=== PATIENT | female | born 1960 | race Caucasian/White ===

== ENCOUNTER → 2016-06-17 | Day surgery (SDC) | payer OTHER ==
[~2016-06-17] MED LIST: ACETAMINOPHEN 1000 MG/100 ML VIAL IV ONE; ACETAMINOPHEN/HYDROcodone 325 MG/5 MG TAB ONE; AMLO5TAB2 PO; BALANCED SALT SOLN OPHT IRRIG 15 ML BTL ONE; LACTATED RINGER'S 1000 ML INJ 1,000 ML ONE; LEVO.1 PO; LEVO125T4 PO; LIDOCAINE 1%/EPINEPHrine 1:100,000 SOLN 50 ML VIAL ONE; LIDOCAINE 2%/EPINEPHrine PF 1:200,000 20ML SDV ONE; LISI30TA4 PO; MIDAZOLAM HCL 2 MG/2 ML VIAL ONE; NEOMYCIN/POLYMYXIN/BACITRACIN OINT 15 GM TUBE ONE; NEOMYCIN/POLYMYXIN/HYDROCORT OTIC SUSP 10 ML BTL ONE; ONDANSETRON HCL 4 MG/2 ML VIAL IV PUSH ONE; PROPOFOL 200 MG/20 ML AMP IV ONE; ceFAZolin INJ 1,000 MG VIAL ONE
--- NOTE | 2016-06-17 11:59 | TN ---
cc: SABAS RODARTE M.D. 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 PROCEDURE 1. Bilateral upper and lower blepharoplasty with bilateral lower lid canthopexy. 2. Cervicofacial rhytidectomy with plication of the SMAS and lateral platysmaplasty. 3. Micro fat injections for a grand total of 25 cc, 12.5 per side, in the nasolabial fold marionette lines and cheek areas. SURGEON Sabas Rodarte MD ANESTHESIA LMA general. ESTIMATED BLOOD LOSS Minimal COMPLICATIONS None. PROCEDURE She was properly consented, marked and positioned in the holding area. She was taken to the upper room where, after achieving a level of LMA anesthesia, the incisions including the eyelid areas were done, anesthetized with 2% lidocaine and then a total of 200 cc of tumescent fluid was injected in the mid-lower face and neck as well as the lower abdomen. After prepping and draping in the usual fashion, our attention was directed to the lower abdomen where, utilizing blunt cannulas, a total of 50 cc of micro-fat was utilized utilizing blunt cannulas. The fat was properly washed and put into a strain where the oils from the blood was removed and it was suitable for injection, a total of approximately 25. From there, to minimize the out of the body time, we injected right away with 5 cc syringes into the areas of the nasolabial fold marionette lines, upper cheek and lateral cheek. After that, attention was directed to the eyelids where the excessive skin was removed from the upper eyelids. Through a subciliary incision, we elevated the lower eyelid as a myocutaneous flap, released the orbital septum and redistributed the lower fat pads which were properly sutured in this new anatomical position away from the arcus marginalis and orbital septum utilizing 6-0 Monocryl suture. At this point a lateral canthoplasty was done utilizing 5-0 clear nylon from the inner aspect of the orbit to the lateral canthal system. With that, the excess skin was removed from the lower eyelid and closure of the wounds were done utilizing 6-0 Monocryl suture in the dermis and subcu of 6-0 Prolene. The contralateral side was approached in exactly the same manner. At this point attention was directed to the face where, through a pre and postauricular incision, the cervicofacial flap was elevated proximal to the nasolabial fold and down to the base of the neck. I proceeded to perform the SMAS plication utilizing a running 4-0 Mersilene suture and lateral platysmaplasty as well. Lipectomy was done where needed to sculpture the neck and with this ARTISS tissue glue was utilized for tissue glue to assure good adhesion. The contralateral side was approached in exactly the same manner and at this point I proceeded and performed the closure in which in the preauricular area I utilized 5-0 Monocryl suture of 5-0 fast-absorbing. In the postauricular area I utilized 3-0 Monocryl suture and surgical aury. Good viability of the tissue was noted at the end of the case. The suture lines on the eyelids were secured utilizing Steri-Strips and absorbent compression dressing was applied thereafter. She was awakened and extubated in the operating room, transferred back to the Post-Anesthesia Care Unit in stable condition. No complication appreciated and the patient tolerated the procedure fairly well. MD ANGIE Hawley/TINA /11:26 AM /11:43 AM HOWARD
== END | disposition home or self-care (01) ==
LOC: ESDC 06:19
PROVIDERS: ATTEND Plastic Surgery
DX: Z41.1 Encounter for cosmetic surgery (principal)
CPT/HCPCS: 00103; 00300; 11954; 15820; 15822; 15828; 21282; J0131; J0690; J2250; J2405; J3010; J7120

== ENCOUNTER 2016-09-07 21:34 | Emergency (ER) | payer BC ==
[~2016-09-07] VITALS: Ht 170.2 cm; Wt 65.0 kg
[2016-09-07 21:36] VITALS: BP 141/73; PULSE 84; RESP 18; TEMP 99.3; O2SAT 84
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
[2016-09-07] MEDS ORDERED: ALPRAZolam 0.5 MG TAB PO ONE (22:45)
[2016-09-07 23:36] LABS: AUTOMATED NEUTROPHIL # 3.6 TH/MM3 (1.8-7.7); BASOPHIL % 0.7 % (0.0-2.0); EOSINOPHIL # 0.1 TH/MM3 (0-0.4); EOSINOPHIL % 1.1 % (0.0-4.0); HEMATOCRIT 46.1 % (35.0-46.0); HEMO FLAGS DIFF FINAL; LYMPH % 33.4 % (9.0-44.0); LYMPHOCYTE # 2.2 TH/MM3 (1.0-4.8); MEAN CELL VOLUME 95.5 FL (80.0-100.0); MEAN CORPUSCULAR HEMOGLOBIN 33.6 PG (27.0-34.0); MEAN CORPUSCULAR HGB CONC 35.1 % (32.0-36.0); MONO % 8.7 % (0.0-8.0); NEUT % 56.1 % (16.0-70.0); PLATELET COUNT 228 TH/MM3 (150-450); RED BLOOD COUNT 4.83 MIL/MM3 (4.00-5.30); RED CELL DISTRIBUTION WIDTH 14.1 % (11.6-17.2); WHITE BLOOD COUNT 6.5 TH/MM3 (4.0-11.0)
[2016-09-07 23:37] LABS: BLOOD, URINE NEG (NEG); COMMENT (UR) CULT NOT INDICATED; CULTURE IF INDICATED CULT NOT INDICATED; GLUCOSE,URINE NEG (NEG); HYALINE CAST, URINE 3 /lpf (RARE); KETONE, URINE NEG (NEG); NITRITE,URINE NEG (NEG); SQUAMOUS EPITHELIAL CELL URINE 1 /hpf (0-5); URINE COLOR YELLOW (YELLW/STRAW)
[2016-09-07 23:42] LABS: AMPHETAMINE, URINE NEG (NEG); BARBITURATES, URINE NEG (NEG); COCAINE, URINE NEG (NEG)
[2016-09-07 23:49] LABS: ANION GAP 12 MEQ/L (5-15); AST (GOT) 32 U/L (15-37); BICARBONATE 24.4 MEQ/L (21.0-32.0); BLOOD UREA NITROGEN 9 MG/DL (7-18); CHLORIDE 99 MEQ/L (98-107); GLOMERULAR FILTRATION RATE 66 ML/MIN (>89); POTASSIUM 3.7 MEQ/L (3.5-5.1); SODIUM (NA) 135 MEQ/L (136-145)
[2016-09-07 23:50] LABS: ALT (GPT) 27 U/L (10-53)
[2016-09-07 23:52] LABS: ALKALINE PHOSPHATASE 111 U/L (45-117); TOTAL BILIRUBIN ADULT 0.7 MG/DL (0.2-1.0)
[2016-09-08] LABS: FREE T4 0.55 NG/DL (0.76-1.46)
[2016-09-08 00:08] LABS: ACETAMINOPHEN LESS THAN 2.0 MCG/ML (10.0-30.0)
[2016-09-08] MEDS ORDERED: LEVO.1 PO (00:15)
[2016-09-08] MEDS ORDERED: LISI30TA4 PO (00:16)
[2016-09-08] MEDS ORDERED: AMLO5TAB2 PO (00:18)
[2016-09-08] MEDS ORDERED: LEVO125T4 PO (00:33)
[2016-09-08] MEDS ORDERED: LEVOTHYROXINE SODIUM 125 MCG TAB PO ONE (00:45)
[2016-09-08] MEDS ORDERED: LORazepam 2 MG/ML VIAL IM ONE (00:45)
[2016-09-08 01:28] VITALS: BP 134/62; PULSE 74; RESP 18; O2SAT 94
[2016-09-08] MEDS ORDERED: ONDANSETRON ODT 4 MG TAB PO ONE ×2 (04:30)
[2016-09-08] MEDS ORDERED: LEVOTHYROXINE SODIUM 100 MCG TAB PO ONE (06:00)
[2016-09-08 07:10] VITALS: BP 130/62; PULSE 74; RESP 14; TEMP 99.4; O2SAT 91
== END 2016-09-08 09:49 | disposition home or self-care (01) ==
LOC: NEPD 21:34
DX: F32.9 Major depressive disorder, single episode, unspecified (principal); R45.851 Suicidal ideations; F41.9 Anxiety disorder, unspecified; E03.9 Hypothyroidism, unspecified; Z72.0 Tobacco use; Z79.899 Other long term (current) drug therapy
CPT/HCPCS: 80053; 80307; 81001; 84439; 84443; 85025; 96372; 99284; J2060